=== PATIENT | female | born 1960 | race Caucasian/White ===

== ENCOUNTER 2018-03-11 08:52 | Outpatient (REF) | payer OTHER, BC, SELFPAY ==
[2018-03-11 12:23] LABS: HCT 41.1 % (36.0-46.0); HGB 13.7 g/dL (12.0-15.5); Mean Corp. HGB Concentration 33.3 g/dL (32.0-36.0); Mean Corpuscular Hemoglobin 30.9 pg (27.0-33.0); Mean Corpuscular Volume 92.6 fL (80-95); Mean Platelet Volume 11.2 fL (8.0-11.0); Platelet Count 251 x1000/uL (130-400); RBC 4.44 m/cumm (4.00-5.20); RBC Distribution Width 12.6 % (11.7-14.6); White Blood Cell Count 7.35 k/cumm (4.4-10.8)
[2018-03-11 12:46] LABS: ALT 67 U/L (12-78); AST 32 U/L (15-37); Albumin 3.9 g/dL (3.4-5.0); Alkaline Phosphatase 50 U/L (46-116); Anion Gap 9.9 mmol/L (3-11); BUN 16 mg/dL (7-18); Bilirubin, Total 0.4 mg/dL (0.2-1.0); CO2 29.1 mmol/L (21.0-32.0); CREATININE 0.91 mg/dL (0.55-1.02); Calcium 9.6 mg/dL (8.5-10.1); Chloride 101 mmol/L (98-107); Cholesterol 256 mg/dL (50-200); Glucose 99 mg/dL (70-100); HDL Cholesterol 57 mg/dL (40-60); LDL CHOLESTEROL 171 mg/dL (<100); Potassium 3.8 mmol/L (3.5-5.1); Sodium 140 mmol/L (136-145); Total Protein 7.3 g/dL (6.4-8.2); Triglyceride 136 mg/dL (30-150)
[2018-03-11 12:56] LABS: Lipase 113 U/L (73-393)
== END 2018-03-11 09:12 ==
LOC: NCHCN 08:52
PROVIDERS: PCP Internal Medicine; Visit Provider Family Medicine
DX: Z00.00 Encounter for general adult medical examination without abnormal findings (principal); C50.919 Malignant neoplasm of unspecified site of unspecified female breast; G43.909 Migraine, unspecified, not intractable, without status migrainosus; I10 Essential (primary) hypertension
CPT/HCPCS: 80053; 80061; 83690; 83721; 85027

== ENCOUNTER 2019-04-21 08:57 | Outpatient (REF) | payer OTHER, BC, SELFPAY ==
[2019-04-21 11:36] LABS: ALT 35 U/L (14-59); AST 23 U/L (15-37); Albumin 3.9 g/dL (3.4-5.0); Alkaline Phosphatase 60 U/L (46-116); Bilirubin, Direct 0.13 mg/dL (0.00-0.20); Bilirubin, Total 0.4 mg/dL (0.2-1.0); Total Protein 7.3 g/dL (6.4-8.2)
== END 2019-04-21 09:17 ==
LOC: NCHCN 08:57
PROVIDERS: PCP Internal Medicine; Visit Provider Family Medicine
DX: E78.5 Hyperlipidemia, unspecified (principal)
CPT/HCPCS: 80076

== ENCOUNTER 2019-11-22 09:15 | Outpatient (REF) | payer OTHER, BC, SELFPAY ==
[2019-11-22 20:46] LABS: HCT 39.1 % (36.0-46.0); HGB 13.1 g/dL (12.0-15.5); Mean Corp. HGB Concentration 33.5 g/dL (32.0-36.0); Mean Corpuscular Hemoglobin 30.9 pg (27.0-33.0); Mean Corpuscular Volume 92.2 fL (80-95); Mean Platelet Volume 11.6 fL (8.0-11.0); Platelet Count 259 x1000/uL (130-400); RBC 4.24 m/cumm (4.00-5.20); White Blood Cell Count 6.19 k/cumm (4.4-10.8)
[2019-11-22 20:57] LABS: ALT 22 U/L (14-59); AST 15 U/L (15-37); Albumin 3.8 g/dL (3.4-5.0); Alkaline Phosphatase 72 U/L (46-116); Anion Gap 9.2 mmol/L (3-11); BUN 16 mg/dL (7-18); Bilirubin, Total 0.4 mg/dL (0.2-1.0); CO2 25.8 mmol/L (21.0-32.0); CREATININE 0.67 mg/dL (0.55-1.02); Calcium 8.9 mg/dL (8.5-10.1); Calculated LDL 137 mg/dL (<100); Chloride 106 mmol/L (98-107); Cholesterol 213 mg/dL (<200); Glucose 94 mg/dL (74-106); HDL Cholesterol 58 mg/dL (40-60); Potassium 3.7 mmol/L (3.5-5.1); Sodium 141 mmol/L (136-145); Total Protein 6.8 g/dL (6.4-8.2); Triglyceride 94 mg/dL (<150)
[2019-11-22 21:19] LABS: Hemoglobin A1C 5.9 % (3.8-5.6)
== END 2019-11-22 09:35 ==
LOC: NCHCN 09:15
PROVIDERS: PCP Internal Medicine; Visit Provider Family Medicine
DX: Z13.1 Encounter for screening for diabetes mellitus (principal)
CPT/HCPCS: 80053; 80061; 85027; 83036

== ENCOUNTER 2019-12-08 13:47 | Outpatient (REF) | payer OTHER, BC, SELFPAY ==
--- NOTE | 2019-12-08 12:25 | PAPFT_PTH ---
PATIENT: Roxy Richardson LOC: [facility] U#:[id number] AGE/SX: 59/F ROOM: RE12/08/[address]: Oralia Barnard : 1960 BED: DIS: 12/08/2019 SPEC #: [id number] RECD: 12/09/19 12:47 STATUS: OSBALDOPayal REQ #: [id number] CAROL: 12/08/19 12:[address]: Oralia Barnard DEPT: [facility] Cytology RECD BY: Keyla Hopper ENTERED: 12/09/19 12:48 SP TYPE: PAPFT OTHR DR: Wilfred De Jesus Tissues: 1 - CX/ENDOCX FOR PAP SMEARS Procedures: PAP THIN PREP/UVM Screening HPV DNA PROBE Comments: [id number]
== END 2019-12-08 14:07 ==
LOC: NCHCN 13:47
PROVIDERS: PCP Internal Medicine; Visit Provider Family Medicine
DX: Z11.51 Encounter for screening for human papillomavirus (HPV) (principal); Z12.4 Encounter for screening for malignant neoplasm of cervix
CPT/HCPCS: 88142; 87624

== ENCOUNTER 2019-12-28 00:28 | Outpatient (CLI) | payer OTHER, BC, SELFPAY ==
--- NOTE | 2019-12-28 15:00 | DI.MAMMO_ITS ---
EXAM: MG MAMMO SCREENING 60 MIN DUR CLINICAL HISTORY: SCREENING, PERSONAL H/O BREAST CA,C50.919[place] [facility] [place]: Mammograms were interpreted according to the usual protocol including computer analysis w [facility] CAD system, tomosynthesis and C-view imaging. COMPARISON: FINDINGS: Note is made of a prior right lumpectomy. No mass or clumped microcalcification identified in either breast. Scattered nonspecific microcalcifications are noted. Current examination is compared with previous examinations including July 2018 and there has been no gross interval change in appearance in comparison with prior studies. IMPRESSION: No specific evidence of malignancy at this time. Routine screening examinations are suggested at ye starr intervals due to the history of breast carcinoma. BI-RADS Category 1 - Negative Breast Density - Category C - Heterogeneously dense
== END 2019-12-28 00:48 ==
PROVIDERS: PCP Family Medicine; Visit Provider Family Medicine
DX: Z85.3 Personal history of malignant neoplasm of breast (principal); R92.0 Mammographic microcalcification found on diagnostic imaging of breast; R92.2 Inconclusive mammogram; Z12.31 Encounter for screening mammogram for malignant neoplasm of breast
CPT/HCPCS: 77063; 77067

== ENCOUNTER 2020-06-19 15:17 | Outpatient (REF) | payer OTHER, BC, SELFPAY ==
[2020-06-20 19:39] LABS: COVID-19 RT-PCR UVMMC Result Negative (Negative)
== END 2020-06-19 15:18 | disposition home or self-care (01) ==
LOC: NCHCN 15:17
PROVIDERS: PCP Family Medicine; Visit Provider Family Medicine
DX: Z20.828 Contact with and (suspected) exposure to other viral communicable diseases (principal)
CPT/HCPCS: U0003

== ENCOUNTER 2020-08-09 22:29 | Outpatient (REF) | payer OTHER, BC, SELFPAY ==
[2020-08-11 17:44] LABS: COVID-19 RT-PCR UVMMC Result Negative (Negative)
== END 2020-08-09 22:30 | disposition home or self-care (01) ==
LOC: NCHCN 22:29
PROVIDERS: PCP Family Medicine; Visit Provider Family Medicine
DX: Z20.828 Contact with and (suspected) exposure to other viral communicable diseases (principal)
CPT/HCPCS: U0003

== ENCOUNTER 2020-10-13 01:56 | Outpatient (CLI) | payer OTHER, BC, SELFPAY ==
--- NOTE | 2020-10-13 08:27 | DI.RAD_ITS ---
Exam(s) XR KNEE RT 3V AP,LAT,OTONIEL EXAM: XR KNEE RT 3V AP,LAT,OTONIEL CLINICAL HISTORY: RT KNEE JOINT PAIN, M25.561. TECHNIQUE: 2D digital imaging was performed. COMPARISON: No exams were available for comparison FINDINGS: The bones are intact and normally mineralized. The articular surfaces are well maintained. There is a small enthesophyte at the superior patella. No suspicious lytic or sclerotic lesions are seen. N o joint effusion is present. The soft tissues are unremarkable. IMPRESSION: No acute abnormality. DATA REPOSITORY: RADIATION DOSE DELIVERED:
== END 2020-10-13 02:16 ==
PROVIDERS: PCP Family Medicine; Visit Provider Family Medicine
DX: M25.561 Pain in right knee (principal)
CPT/HCPCS: 73562

== ENCOUNTER 2020-10-30 15:49 | Outpatient (REF) | payer OTHER, BC, SELFPAY ==
[2020-10-30 21:39] LABS: Abs Immature Grans 0.03 10^3/uL (0.0-0.06); Absolute Basophil Count 0.07 10^3/uL (0.0-0.2); Absolute Eosinophil Count 0.27 10^3/uL (0.0-0.7); Absolute Lymphocyte Count 1.86 10^3/uL (1.2-3.4); Absolute Monocyte Count 1.01 10^3/uL (0.1-0.8); Absolute Neutrophil Count 6.31 10^3/uL (1.2-6.7); Basophils % 0.7; Eosinophils % 2.8; HCT 38.9 % (36.0-46.0); HGB 12.9 g/dL (11.2-15.7); Immature Grans % 0.3; Lymphocytes % 19.5; MCH 30.4 pg (27.0-33.0); MCHC 33.2 % (32.0-36.0); MCV 91.5 fL (80-95); MPV 11.8 fL (8.0-11.0); Monocytes % 10.6; Neutrophils % 66.1; Nucleated RBC 0 %; Platelet Count 238 10^3/uL (130-400); RBC 4.25 10^6/uL (3.93-5.22); RDW 12.6 % (11.7-14.6); RDW-SD 42.4 fL; WBC 9.55 10^3/uL (4.4-10.8)
[2020-10-30 21:41] LABS: ESR 37 mm/hr (0-30)
[2020-10-30 22:07] LABS: ALT 20 U/L (14-59); AST 14 U/L (15-37); Alkaline Phosphatase 83 U/L (46-116); Anion Gap 11.8 mmol/L (3-11); BUN 21 mg/dL (7-18); Bilirubin, Total 0.4 mg/dL (0.2-1.0); C-Reactive Protein 5.02 mg/dL (0.0-0.3); CO2 26.2 mmol/L (21.0-32.0); Calcium 9.3 mg/dL (8.5-10.1); Chloride 106 mmol/L (98-107); Estimated GFR 56.56 (mL/min/1.73m2); Glucose 114 mg/dL (74-106); Potassium 3.4 mmol/L (3.5-5.1); Sodium 144 mmol/L (136-145); Total Protein 7.2 g/dL (6.4-8.2)
[2020-11-01 10:35] LABS: Lyme Ab w Rflx to Lyme Confirm Negative (Negative)
[2020-11-02 13:27] LABS: Anaplasma phagocytophilum Negative (Negative); B. miyamotoi PCR Negative (Negative); Babesia divergens/MO-1 Negative (Negative); Babesia duncani Negative (Negative); Babesia microti Negative (Negative); Ehrlichia chaffeensis Negative (Negative); Ehrlichia ewingii/canis Negative (Negative); Ehrlichia muris eauclairensis Negative (Negative)
== END 2020-10-30 15:50 | disposition home or self-care (01) ==
LOC: LBN 15:49
PROVIDERS: PCP Family Medicine; Visit Provider Nurse Practitioner Family
DX: M25.59 Pain in other specified joint (principal)
CPT/HCPCS: 80053; 85652; 87798; 85025; 86140; 86618

== ENCOUNTER 2020-11-10 12:30 | Outpatient (REF) | payer OTHER, BC, SELFPAY ==
[2020-11-11 22:39] LABS: Rheumatoid Factor <8.6 IU/mL (<12.0)
[2020-11-13 14:59] LABS: ANCA Interpretation Negative (Negative)
[2020-11-13 15:32] LABS: ANA Interpretation Positive (Negative); ANA Titer Pattern 1:80 Homogeneous
== END 2020-11-10 12:31 | disposition home or self-care (01) ==
LOC: NCHCN 12:30
PROVIDERS: PCP Family Medicine; Visit Provider Family Medicine
DX: M25.50 Pain in unspecified joint (principal)
CPT/HCPCS: 86255; 86038; 86431

== ENCOUNTER 2021-01-30 02:25 | Outpatient (CLI) | payer OTHER, BC, SELFPAY ==
--- NOTE | 2021-01-30 | DI.MAMMO_ITS ---
Exam(s) MAMMO SCREENING EXAM: MAMMO SCREENING CLINICAL HISTORY: SCREENING, Z12.39 TECHNIQUE: Bilateral full field digital CC and MLO mammographic images were obtained with 3D tomosyn thesis and utilizing computer aided detection (CAD). COMPARISON: Available for comparison. FINDINGS: Masses/Architectural Distortion: None seen. Status post right lumpectomy. Microcalcifications: No suspicious pleomorphic-type are seen. Skin Thickening/Nipple Retraction: None. IMPRESSION: 1. No significant interval change with no specific features of malignancy noted. 2. Unless there is more urgent need, screening mammography is recommended, as per [employer] guidelines. BI-RADS Category 1 - Negative Breast Density - Category C - Heterogeneously dense Breast density category C or D implies that the patient has dense breast tissue. Dense breast tissue is very common and is not abnormal but dense breast tissue can make it harder to find cancer on a ma mmogram. Also, dense breast tissue may increase their breast cancer risk. This information about the result of the mammogram report was provided to the patient to raise their awareness. Use this report when you speak with the patient about their risks for breast cancer, which includes their family hist ory. At that time, you may recommend for more screening tests (Ultrasound or MRI) as they might be us eful based on their risk. A negative radiographic report should not delay biopsy if a dominant or clinically suspicious mass is present. Up to ten percent of cancers are not identified on mammography. A negative report may reinforce clinical impression. Adenosis and dense breasts may obscure an underlying neoplasm. False positive reports average 6 to 10%. Patient will receive a letter notifying them of these results.
== END 2021-01-30 02:45 ==
PROVIDERS: PCP Family Medicine; Visit Provider Family Medicine
DX: Z12.31 Encounter for screening mammogram for malignant neoplasm of breast (principal)
CPT/HCPCS: 77063; 77067

== ENCOUNTER 2022-04-21 09:01 | Emergency (ER) | payer OTHER, BC, SELFPAY ==
[2022-04-21 09:11] VITALS: BP 181/93; PULSE 83; RESP 18; TEMP 36.8; O2SAT 100
--- NOTE | 2022-04-21 10:00 | DI.RAD_ITS ---
Exam(s) XR PORTABLE CHEST AP EXAM: XR PORTABLE CHEST AP CLINICAL HISTORY: cough, r/o pneumonia TECHNIQUE: 2D digital imaging was performed. COMPARISON: No exams were available for comparison FINDINGS: LUNGS: Clear. No pleural abnormality seen. HEART: Normal size. AORTA: Normal diameter. BONES: Unremarkable for age. Soft tissues: Unremarkable. IMPRESSION: No acute findings. DATA REPOSITORY: RADIATION DOSE DELIVERED:
[2022-04-21 10:28] LABS: COVID-19 PCR Negative (Negative); Influenza A PCR Negative (Negative); Influenza B PCR Negative (Negative)
[2022-04-21 10:29] LABS: RSV PCR Positive (Negative)
--- NOTE | 2022-04-21 10:29 | DI.VRAD_ITS ---
PROCEDURE INFORMATION: Exam: XR Chest Exam date and time: 04/21/2022 9:50 AM Age: 61 years old Clinical indication: Other: Cough, R/O pneumonia TECHNIQUE: Imaging protocol: Radiologic exam of the chest. Views: 1 view. COMPARISON: CT ABD/PELVIS WO W CONTRAST 05/14/2017 8:04 AM FINDINGS: Lungs: Unremarkable. No consolidation. Pleural spaces: Unremarkable. No pleural effusion. No pneumothorax. Heart/Mediastinum: Unremarkable. No cardiomegaly. Bones/joints: Unremarkable. IMPRESSION: No acute findings. Dictated and Authenticated by: César Koch MD. Ordering:PRICILA Yoo MD
--- NOTE | 2022-04-21 10:40 | ED.GENADUL_ITS ---
Discharge Plan Disposition Patient Disposition: Home Condition: Good Discharge Details Clinical Impression: RSV bronchitis Primary Care Provider: Oralia Barnard ED Provider: Fredo Irving Home Meds and New Rx's Prescriptions: No Action lovastatin 20 mg tablet 20 mg PO QPM losartan 100 mg tablet 100 mg PO DAILY dhzkrisi-bpntppz-thmy-lutein Tablet PO DAILY Discharge Instructions Instructions: Acute Bronchitis (ED) Additional Instructions: At this time your test is positive for respiratory syncytial virus. Your COVID and flu are negative. The x-ray shows no evidence of pneumonia. Please continue to monitor your symptoms closely. If you notice any worsening of your symptoms, or any new symptoms such as vomiting, diarrhea, fever, chills, shortness of breath, chest pain, numbness, weakness, or fainting , please return immediately to the emergency department for reevaluation. Please follow up with your primary care provider as soon as possible for reassessment and reevaluation. As always, it was a pleasure participating in your medical care today. Referrals: Oralia Barnard [Primary Care Provider] - Discharge Data Discharge Date/Time-TO BE ENTERED AT DEPARTURE: 04/21/22 10:49 Medical Decision Making This is a 61-year-old female with no significant past medical history who presents today for evaluation of cough. Patient states that for the last 6 days she has had a mild cough, headache, congestion sore throat and ear pain. She tested herself for COVID that was negative. She denies any current fever. She denies any vomiting or diarrhea. She does not smoke. She has no other complaints at this time. Physical exam demonstrates a well-appearing female. Lung sounds are clear. No wheezes rales or rhonchi. Chest x-ray was ordered and shows no evidence of pneumonia. Fluid test is positive for RSV. Recommend continued supportive therapy at home. Discussed red flags for which to return. I have extensively reviewed the treatment plan and discharge instructions with the patient. I have addressed all patient concerns at this time. The patient was made aware of what symptoms to monitor for that would warrant a return to the emergency department. Discussed the plan with the patient, they demonstrate verbal understanding and agreement with our assessment and plan at this time. The documentation in this chart was dictated using [employer] dictation software. Please excuse any dictation errors. FINDINGS: Lungs: Unremarkable. No consolidation. Pleural spaces: Unremarkable. No pleural effusion. No pneumothorax. Heart/Mediastinum: Unremarkable. No cardiomegaly. Bones/joints: Unremarkable. IMPRESSION: No acute findings. Thank you for allowing us to participate in the care of your patient. Dictated and Authenticated by: César Koch MD 04/21/2022 10:29 AM Eastern Time ([place] & Mar) HPI General Date/Time Provider Initiated Documentation: 04/21/22 09:41 . HPI Narrative: This is a 61-year-old female with no significant past medical history who presents today for evaluation of cough. Patient states that for the last 6 days she has had a mild cough, headache, congestion sore throat and ear pain. She tested herself for COVID that was negative. She denies any current fever. She denies any vomiting or diarrhea. She does not smoke. She has no other complaints at this time. Related Data Home Medications Medication Instructions Recorded Confirmed losartan 100 mg tablet 100 mg PO DAILY 09/14/21 04/21/22 lovastatin 20 mg tablet 20 mg PO QPM 09/14/21 04/21/22 jucttttt-fjzzoeq-hpcp-lutein tablet tab PO DAILY 09/14/21 Allergies Allergy/AdvReac Type Severity Reaction Status Date / Time lisinopril Allergy Severe Verified 04/21/22 09:16 General Stated Complaint: RespSymp LORENE: 4 Review of Systems All systems reviewed & are unremarkable except as noted in HPI and below PFSH All Active Problems (Updated 04/21/22 @ 10:43 by Fredo Irving DO) RSV bronchitis (Acute) Screening for colon cancer (Acute) Medical History (Updated 04/21/22 @ 10:43 by Fredo Irving DO) Arthralgia Breast cancer Hematuria, microscopic Hyperlipidemia Hypertension Migraine headache Neck pain Surgical History (Updated 09/14/21 @ 14:50 by Yudith Cortez RN) History of colonoscopy (~03/2011) Social History Smoking/Tobacco Use Status: Never Smoking risk assessment performed?: Yes Alcohol Intake: current Alcohol Intake frequency: a few times a month Alcohol type: wine Drug use: Never Substance use type: does not use Do you feel safe at home: Yes Do you feel safe in your relationship?: Yes Exam Narrative Exam Narrative: 1.Const: Well-nourished, Well-developed, appearing stated age 2.Eyes: PERRL, no conjunctival injection, and symmetrical lids. 3.ENT: Atraumatic external nose and ears. Moist MM. Neck: Symmetric, trachea midline, No thyromegaly. 4.CVS: +S1/S2, No murmurs or gallops. Peripheral pulses 2+ and equal in all extremities. Brisk capillary refill in all extremities. 5.RESP: Unlabored respiratory effort. Clear to auscultation bilaterally. No wheezes rales or rhonchi 6.GI: Soft, Nontender/Nondistended, No hepatosplenomegaly. No guarding or rebound. 7.MSK: Normocephalic/Atraumatic, Extremities w/o deformity or ttp No cyanosis or clubbing, Normal movement of all extremities 8.Skin: Warm, Dry. No rashes or lesions. 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 Sensation grossly intact, no focal neurologic deficits. 10.Psych: (AAO) x3. Appropriate mood and affect Course Vital Signs Vital signs: Vital Signs Temperature 36.8 C 04/21/22 09:11 Pulse 83 04/21/22 09:11 Respiratory Rate 18 04/21/22 09:11 Blood Pressure 181/93 H 04/21/22 09:11 Pulse Oximetry 100 04/21/22 09:11 Temperature 36.8 C 04/21/22 09:11 Temperature Source Oral 04/21/22 09:11 Pulse 83 04/21/22 09:11 Respiratory Rate 18 04/21/22 09:11 Respiratory Effort Non-Labored 04/21/22 09:19 Respiratory Depth Normal 04/21/22 09:19 Blood Pressure 181/93 H 04/21/22 09:11 Blood Pressure Position Sitting 04/21/22 09:11 Pulse Oximetry 100 04/21/22 09:11 Oxygen Delivery Method Room Air 04/21/22 09:11 Oxygen Flow Rate 0 04/21/22 09:11 Pain Level 6 04/21/22 09:11 Lab/Test Results Lab/Test Results: Laboratory Tests Range/Units 04/21/22 09:45 COVID-19 Source Not Applicable SARS-CoV-2 (PCR) (Negative) Negative Influenza Type A (PCR) (Negative) Negative Influenza Type B (PCR) (Negative) Negative RSV (PCR) (Negative) Positive A* PAWSS Have you Been Recently Intoxicated or Drunk Within the Last 30 days?: No Have you Ever Experienced Previous Episodes of Alcohol Withdrawal?: No Have you ever Experienced Withdrawal Seizures?: No Have you ever Experienced Delirium Tremens(DT)s?: No Have you ever undergone Alcohol Rehabilitation Treatment (i.e, inpt ot outpatient treatment programs)?: No Have you ever Experienced Blackouts?: No Have you ever Combined Alcohol with other Downers within the last 90 days?: No Have you ever Combined Alcohol with any other Substance of Abuse during the last 90 days?: No Positive Blood Alcohol level on Presentation? [PCS.BAL]: No Evidence of Increased Autonomic Activity (i.e. HR>120, tremor, sweating, agitation, nausea)?: No Result: 0
== END 2022-04-21 10:49 | disposition home or self-care (01) ==
PROVIDERS: Emergency Provider Student in an Organized Health Care Education/Training Program; PCP Family Medicine
DX: J20.5 Acute bronchitis due to respiratory syncytial virus (principal); I10 Essential (primary) hypertension; Z20.822 Contact with and (suspected) exposure to COVID-19
CPT/HCPCS: 87637; 99283; 71045; 99282

== ENCOUNTER 2022-07-08 06:57 | Day surgery (SDC) | payer OTHER, BC, SELFPAY ==
--- NOTE | 2022-07-07 20:53 | W.PM.DSUDISC ---
Date of service: 07/08/22 Time of Service: 10:34 Discharge Plan Disposition Patient Disposition: Home Condition: Good Discharge Details Reason For Visit: Colonoscopy Attending Provider: Kobe Vega Primary Care Provider: Oralia Barnard Home Meds and New Rx's Prescriptions: Continued lovastatin 20 mg tablet 20 mg PO QPM losartan 100 mg tablet 100 mg PO DAILY spdcskgl-meqnzgg-ydua-lutein Tablet 1 tab PO DAILY Discontinued bisacodyl [Dulcolax (bisacodyl)] 5 mg tablet,delayed release (DR/EC) 5 mg PO ONCE Qty: 4 0RF Rx Instructions: Take according to provider's instructions for colonoscopy prep. polyethylene glycol 3350 17 gram/dose powder 17 g PO ONCE Qty: 238 0RF Rx Instructions: To be taken as directed by prescriber's office for colonoscopy prep. No Action naproxen sodium [Aleve] 220 mg Capsule 220 mg PO BID PRN Discharge Instructions Instructions: Colorectal Polyps (GEN), Diverticulosis (GEN), Diverticulosis Diet (GEN) Additional Instructions: Arin, we were able to complete your colonoscopy today without any difficulty. The quality of your prep was excellent. I did see 1 polyp in the cecum. I removed this completely. Once I have the pathology report, I will let you know what the results are. Incidentally, you also have some diverticulosis. I will attach some information here regarding diverticular disease, and general management. 1. If tolerated, consume a soft, low fiber diet for 1-2 days. 2. Do not drive, drink alcohol, operate machinery, make critical decisions, or do activities that require coordination or balance for 24 hours. 3. Because air was put into your colon during the procedure, expelling air from your rectum (passing gas or farting) is normal. 4. You may not have a bowel movement for 1-3 days because of the colonoscopy prep. This is normal. 5. Go directly to the emergency room if you notice any of the following: Develop chills (warm to touch), or if you have a thermometer and your temperature is above 101 Difficulty breathing or difficultly swallowing Persistent vomiting Severe abdominal pain, other than gas cramps Severe chest pain Black, tarry stools Any bleeding ? exceeding one tablespoon 6. Call your physician if the site where your intravenous was started becomes red, swollen, painful, and warm to touch. 7. Your physician has reviewed your pre-procedure medications. Please continue to take those medications as previously ordered. You will be given specific information/education regarding any changes to your medications before leaving. Activity:: Activity as Tolerated Diet:: As Tolerated Discharge Orders Discharge Orders: Discharge Order (Routine); Ordered 07/07/22 Ordered By: Kobe Vega DS: Diagnosis Discharge Diagnosis (1) Screening for colon cancer: Status: Acute Asessment and Plan: Follow-up on polypectomy results
--- NOTE | 2022-07-07 20:54 | W.COLOREPORT ---
Date of service: 07/08/22 Time of Service: 10:36 Colonoscopy Report Date of procedure: 07/08/22 Pre-op diagnosis general: Screening colonoscopy Post-op diagnosis procedure note: other (Cecal polyp, diverticulosis) Procedure: Colonoscopy Surgeon: Kobe Vega Anesthesia Type: General:No Airway Estimated blood loss (mL): 5 Pathology: other (Cecal polyp) Complications: None Disposition: same day Indications: Roxy is a 61 year old woman who is here for a screening colonoscopy Prep: Miralax/Dulcolax Procedure Start Time: 10:09 Procedure End Time: 10:26 Retraction Time: 12 Findings: Single cecal polyp. Sigmoid diverticulosis Procedure Description: After the induction of monitored anesthetic care, and with the patient in left lateral decubitus position, I began by performing an external anorectal exam.? Perineum and skin were normal, as was the anal verge.? There was no evidence of external hemorrhoids.? Next, I performed a digital rectal exam.? I did not appreciate any abnormal findings.? Next, I advanced a colonoscope into the rectal vault.? I performed retroflexion.? This was a normal.? Using insufflation, I then advanced the colonoscope beyond the rectal folds and into the sigmoid colon before advancing towards the cecum.? There was sigmoid diverticulosis. the quality of the prep was excellent.? The scope was noted to be in the cecum by identification of the ileocecal valve and appendiceal orifice.? There was a single cecal polyp. It was 0.25 cm in size and sessile. I removed it with cold forcep polypectomy. There was minimal bleeding. I then began withdrawing the colonoscope using repeated irrigation as necessary for full evaluation of the colonic mucosa. ?Once the scope was withdrawn to the level of the rectum, great care was taken to examine portions of the rectal folds.? Finally, the scope was withdrawn and the patient was brought to the same-day surgery recovery unit as the anesthetic wore off. ?The findings and instructions were shared with the patient prior to discharge.
[2022-07-08 07:11] VITALS: BP 128/76; PULSE 72; RESP 18; TEMP 36.1; O2SAT 99
[2022-07-08] MEDS: Lactated Ringers 1,000 ML 80 ML IV (07:15)
--- NOTE | 2022-07-08 08:27 | W.ANESPRE ---
General Info Date of Service Date Performed: 07/08/22 Height: 5 ft 2 in Weight: 67.6 kg Body Mass Index (BMI): 27.2 Surgical Procedure: Operation Date: 07/08/22 08:20 Proposed Procedure Side Surgeon p Colonoscopy Kobe Vega MD Meds Allergies and Home Medications Allergies Allergy/AdvReac Type Severity Reaction Status Date / Time lisinopril Allergy Severe Verified 07/08/22 07:14 Home Medication Medication Instructions Recorded losartan 100 mg tablet 100 mg PO DAILY 09/14/21 lovastatin 20 mg tablet 20 mg PO QPM 09/14/21 ghxopfzw-vsppibw-svmk-lutein tablet 1 tab PO DAILY 09/14/21 naproxen sodium 220 mg capsule 220 mg PO BID PRN 07/08/22 (Aleve) Current Visit Medications: Current Medications Generic Name Dose Route Start Last Admin Trade Name Freq PRN Reason Stop Dose Admin Hyoscyamine Sulfate 0.125 mg 07/07/22 20:56 Hyoscyamine 0.125 Mg Sl/Oral/Chew SL DIRECTED PRN Ringer's Solution 1,000 mls @ 80 mls/hr 07/08/22 06:00 07/08/22 07:15 IV 08/04/22 23:59 80 mls/hr INFUSION DARINEL Administration IV Miscellaneous Supplies 1 each 07/08/22 06:00 Iv Access IV 08/04/22 23:59 DIRECTED DARINEL Ondansetron HCl 4 mg 07/07/22 20:56 Ondansetron 4 Mg/2 Ml Vial IVP Q4H PRN PRN Nausea / Vomiting Sodium Chloride 0 ml 07/08/22 06:00 Normal Saline Flush 10 Ml Syr IV 08/04/22 23:59 PRN PRN Sodium Chloride 0 ml 07/08/22 06:00 Normal Saline 10 Ml Vial IJ 08/04/22 23:59 DIRECTED PRN Sterile Water 0 ml 07/08/22 06:00 Water,Injection,Sterile 10 Ml Vial IJ 08/04/22 23:59 DIRECTED PRN PFSH Active Problems Active Problems: Problem Status Onset Code Screening for colon cancer Z12.11 Medical History Medical History Arthralgia Breast cancer 9th year remission Hematuria, microscopic Hyperlipidemia Hypertension Migraine headache Neck pain Surgical History Surgical History History of ankle surgery metal plate in ankle History of colonoscopy (~03/2011) Hx of elbow surgery Tobacco Smoking/Tobacco Use Status: Never Alcohol Alcohol Intake: current Alcohol intake frequency: a few times a month Alcohol type: wine Substance Use Substance use: Never Substance use type: does not use Details: alcohol: t-4, couple glasses of wine Vital Signs and Lab Results Vital Signs Most Recent Vital Signs in EMR: Most Recent Vital Signs Temp Pulse Resp BP Pulse Ox 36.1 C L 72 18 128/76 99 07/08/22 07:11 07/08/22 07:11 07/08/22 07:11 07/08/22 07:11 07/08/22 07:11 Lab Results Blood Type / Crossmatch: No Data to Display Complete Blood Count: No Data to Display Complete Metabolic Panel: No Data to Display Liver Function Panel: No Data to Display Coagulation Panel: No Data to Display Cardiac Panel: No Data to Display Arterial Blood Gas: No Data to Display Venous Blood Gas: No Data to Display Pancreas Panel: No Data to Display Thyroid Panel: No Data to Display Infectious Disease: No Data to Display Blood Cultures: No Data to Display Toxicology Panel: No Data to Display Anesthesia Assessment and Plan Anesthesia History Personal History: No History of Anesthesia Complications Family History: No Family History of Anesthesia Complications Exercise Tolerance Exercise Tolerance: Metabolic Equivalents>4 Pertinent Negatives Pertinent Negatives: No Symptoms of GERD, No Major Cardiovascular Symptoms or Complaints and No Major Pulmonary Symptoms or Complaints Cardiac & Pulmonary Exam Cardiac Exam: Normal S1/S2 Heart Sounds Pulmonary Exam: Clear Bilateral Breath Sounds Implantable Cardiac Device Does patient have a Pacemaker or an ICD?: No Airway Exam Known Difficult Airway: No Mallampati Class: 2 Mouth Opening: Normal (> 3cm) Thyromental Distance: Greater than 3 cm Neck Range of Motion: Full ROM Neck Circumference: Normal Teeth Condition: Normal Dentition ASA Classification ASA Score: ASA 2 Emergency Case?: No NPO Status NPO Status: NPO Clears >2 hours, Solids >8 hours Anesthesia Plan Resuscitation Status: Full Code Anesthesia Technique: General Anesthesia Airway Planned: Natural Airway Monitors Used: Standard Monitors
[2022-07-08 09:48] VITALS: BMI 27.2
--- NOTE | 2022-07-08 10:19 | BOWEL_PTH ---
PATIENT: Roxy Richardson LOC: [facility] U#:[id number] AGE/SX: 61/F ROOM: RE07/08/[address]: Kobe Vega MD : 1960 BED: DIS: 07/08/2022 SPEC #: [id number] RECD: 07/08/22 13:01 STATUS: MENDEZ REQ #: [id number] CAROL: 07/08/22 10:[address]: Kobe Vega DEPT: Surgical Specimen RECD BY: Keyla Hopper ENTERED: 07/08/22 13:01 SP TYPE: Bowel OTHR DR: Oralia Barnard Tissues: 1 - BIOPSY BOWEL Procedures: GROSS AND MICRO LEVEL 4 Comments: [id number]
[2022-07-08 10:31] VITALS: BP 122/69; PULSE 65; RESP 18; TEMP 36.3; O2SAT 99
--- NOTE | 2022-07-08 10:42 | W.ANESPOSTOP ---
Postoperative Evaluation Date, Time and Location Date Performed: 07/08/22 Time Performed: 10:37 Patient Location: Day Surgery Unit Vital Signs Most Recent Imported Vital Signs: Most Recent Vital Signs Temp Pulse Resp BP Pulse Ox 36.3 C L 65 18 122/69 99 07/08/22 10:31 07/08/22 10:31 07/08/22 10:31 07/08/22 10:31 07/08/22 10:31 Pain Score Most Recent Pain Score: Most Recent Pain Score Pain Level 0 07/08/22 10:31 Assessment Mental Status: Awake (Alert & Oriented to Patient Baseline) Airway and Respiratory Function: Patent airway with normal (patient baseline) respiratory exam Cardiovascular Function: Hemodynamically Stable Hydration Status: Adequately Hydrated Nausea & Vomiting: No Nausea or Vomiting Pain: Pt. Denies Any Pain Peripheral Nerve Block: Patient did not receive a nerve block
[2022-07-08 11:01] VITALS: BP 144/82; PULSE 76; RESP 18; TEMP 36.3; O2SAT 100
== END 2022-07-08 11:17 | disposition home or self-care (01) ==
PROVIDERS: PCP Family Medicine; Visit Provider Surgery
PROC: 0DJD8ZZ Inspection of Lower Intestinal Tract, Via Natural or Artificial Opening Endoscopic (ICD-10-PCS; CPT 45378; principal; 2022-07-08 08:15)
DX: Z12.11 Encounter for screening for malignant neoplasm of colon (principal); K63.5 Polyp of colon; K57.30 Diverticulosis of large intestine without perforation or abscess without bleeding; Z85.3 Personal history of malignant neoplasm of breast
CPT/HCPCS: 45380; 88305

== ENCOUNTER 2022-07-15 11:47 | Outpatient (REF) | payer OTHER, BC, SELFPAY ==
[2022-07-15 16:10] LABS: ALT 30 U/L (14-59); AST 22 U/L (15-37); Albumin 4.5 g/dL (3.4-5.0); Alkaline Phosphatase 64 U/L (46-116); BUN 16 mg/dL (7-18); Bilirubin, Total 0.6 mg/dL (0.2-1.0); CREATININE 0.7 mg/dL (0.55-1.02); Calcium 9.6 mg/dL (8.5-10.1); Calculated LDL 144 mg/dL (<100); Chloride 104 mmol/L (98-107); Cholesterol 238 mg/dL (<200); Estimated GFR 98.34 (mL/min/1.73m2); Glucose 108 mg/dL (74-106); HDL Cholesterol 84 mg/dL (40-60); Potassium 4.4 mmol/L (3.5-5.1); Sodium 142 mmol/L (136-145); Total Protein 7.8 g/dL (6.4-8.2); Triglyceride 51 mg/dL (<150)
[2022-07-15 16:26] LABS: Vitamin D 25 Total 13.6 ng/mL (30-100)
== END 2022-07-15 11:48 | disposition home or self-care (01) ==
LOC: NCHCN 11:47
PROVIDERS: PCP Family Medicine; Visit Provider Family Medicine
DX: Z00.00 Encounter for general adult medical examination without abnormal findings (principal); E78.5 Hyperlipidemia, unspecified; I10 Essential (primary) hypertension; E55.9 Vitamin D deficiency, unspecified; R79.89 Other specified abnormal findings of blood chemistry
CPT/HCPCS: 80053; 80061; 82306

== ENCOUNTER → 2023-01-31 01:45 | Outpatient (CLI) | payer OTHER, BC, SELFPAY ==
--- NOTE | 2023-01-31 09:15 | DI.MAMMO_ITS ---
Exam(s) MG MAMMO SCREENING 60 MIN DUR EXAM: MG MAMMO SCREENING 60 MIN DUR CLINICAL HISTORY: SCREENING, Z12.31 TECHNIQUE: Bilateral full field digital CC and MLO mammographic images were obtained with 3D tomosyn thesis and utilizing computer aided detection (CAD). COMPARISON: Available for comparison. FINDINGS: Masses/Architectural Distortion: There again seen postsurgical changes of a right lumpectomy. No felicia picious masses or new areas of architectural distortion are seen. Microcalcifications: No suspicious pleomorphic-type are seen. Stable calcifications are seen in both breasts. Skin Thickening/Nipple Retraction: None. IMPRESSION: 1. No significant interval change with no specific features of malignancy noted. 2. Unless there is more urgent need, screening mammography is recommended, as per [employer] guidelines. 3. Findings were discussed with the patient on the date of the examination. BI-RADS Category 2 - Benign Findings Breast Density - Category C - Heterogeneously dense Breast density category C or D implies that the patient has dense breast tissue. Dense breast tissue is very common and is not abnormal but dense breast tissue can make it harder to find cancer on a ma mmogram. Also, dense breast tissue may increase their breast cancer risk. This information about the result of the mammogram report was provided to the patient to raise their awareness. Use this report when you speak with the patient about their risks for breast cancer, which includes their family hist ory. At that time, you may recommend for more screening tests (Ultrasound or MRI) as they might be us eful based on their risk. A negative radiographic report should not delay biopsy if a dominant or clinically suspicious mass is present. Up to ten percent of cancers are not identified on mammography. A negative report may reinforce clinical impression. Adenosis and dense breasts may obscure an underlying neoplasm. False positive reports average 6 to 10%. Patient will receive a letter notifying them of these results.
== END ==
PROVIDERS: PCP Family Medicine; Visit Provider Family Medicine
DX: Z12.31 Encounter for screening mammogram for malignant neoplasm of breast (principal)
CPT/HCPCS: 77063; 77067

== ENCOUNTER → 2023-04-07 13:27 | Outpatient (CLI) | payer OTHER, BC, SELFPAY ==
--- NOTE | 2023-04-07 | DI.RAD_ITS ---
Exam(s) XR ANKLE RT COMPLETE EXAM: XR ANKLE RT COMPLETE CLINICAL HISTORY: PAIN RT ANKLE AND JOINTS RT FOOT M25.571. TECHNIQUE: 2D digital imaging was performed. COMPARISON: CR LEFT ANKLE COMPLETE from 05/11/2011 CR LEFT ANKLE 2 VIEW from 05/21/2011 CR LEFT ANKLE COMPLETE from 07/05/2011 CR LEFT ANKLE COMPLETE from 08/02/2011 FINDINGS: There is mild soft tissue swelling over the medial malleolus but no malleolar fractures identified. No widening of the ankle mortise. Talar dome unremarkable. On the dorsal aspect of the foot there is a small accessory ossicle dorsal to the talonavicular joint . However, there is also just distal to this a 3 x 2 millimeter osteophytic density just dorsal to t he navicular which may represent an avulsion injury. There is an inferior calcaneal spur measuring 7 mm. There is an enthesophyte on the posterior calcan eus insertion site of the Achilles tendon. On the lateral view there is a subcutaneous triangular finding which measures 2 mm and is probably a foreign body. IMPRESSION: 1. 3 mm osteophytic density dorsal to the navicular bone which may be an avulsion fragment. Correlat ion with site of tenderness is recommended. 2. There appears to be a 2 mm radiopaque foreign body in the subcutaneous tissues on the undersurfac e of the foot, as best seen on the lateral view. DATA REPOSITORY: RADIATION DOSE DELIVERED:
== END ==
PROVIDERS: PCP Family Medicine; Visit Provider Nurse Practitioner Family
DX: M25.571 Pain in right ankle and joints of right foot (principal)
CPT/HCPCS: 73610

== ENCOUNTER 2023-07-30 09:04 | Outpatient (REF) | payer OTHER, BC, SELFPAY ==
[2023-07-30 14:49] LABS: ALT 28 U/L (14-59); AST 18 U/L (15-37); Albumin 4.3 g/dL (3.4-5.0); Alkaline Phosphatase 64 U/L (46-116); Anion Gap 9.8 mmol/L (3-11); BUN 22 mg/dL (7-18); Bilirubin, Total 0.4 mg/dL (0.2-1.0); CO2 28.2 mmol/L (21.0-32.0); CREATININE 0.7 mg/dL (0.55-1.02); Calcium 9.3 mg/dL (8.5-10.1); Calculated LDL 145 mg/dL (<100); Chloride 103 mmol/L (98-107); Cholesterol 241 mg/dL (<200); Estimated GFR 97.72 (mL/min/1.73m2); Glucose 103 mg/dL (74-106); HDL Cholesterol 87 mg/dL (40-60); Potassium 3.9 mmol/L (3.5-5.1); Sodium 141 mmol/L (136-145); Total Protein 7.5 g/dL (6.4-8.2); Triglyceride 47 mg/dL (<150)
[2023-07-30 15:10] LABS: Vitamin D 25 Total 28.6 ng/mL (30-100)
== END 2023-07-30 09:05 | disposition home or self-care (01) ==
LOC: NCHCN 09:04
PROVIDERS: PCP Family Medicine; Visit Provider Family Medicine
DX: E78.5 Hyperlipidemia, unspecified (principal); I10 Essential (primary) hypertension; Z00.00 Encounter for general adult medical examination without abnormal findings
CPT/HCPCS: 80053; 80061; 82306; 83036

== ENCOUNTER 2023-09-03 08:13 | Outpatient (REF) | payer OTHER, BC, SELFPAY ==
--- NOTE | 2023-09-03 07:45 | SKI_PTH ---
PATIENT: Roxy Richardson LOC: [facility] U#:[id number] AGE/SX: 62/F ROOM: RE09/03/[address]: Jama Ordaz MD : 1960 BED: DIS: 09/03/2023 SPEC #: [id number] RECD: 09/03/23 16:46 STATUS: MENDEZ RERomeo #: [id number] CAROL: 09/03/23 07:[address]: Jama Ordaz DEPT: Surgical Specimen RECD BY: Keyla Hopper ENTERED: 09/03/23 16:47 SP TYPE: IDRIS STEVE DR: Oralia Barnard Tissues: 1 - SKIN BIOPSY(SHAVE/PUNCH) 2 - SKIN BIOPSY(SHAVE/PUNCH) Procedures: SKIN LEVEL 4 Comments: [id number]
== END 2023-09-03 08:14 | disposition home or self-care (01) ==
LOC: LBN 08:13
PROVIDERS: PCP Family Medicine; Visit Provider Otolaryngology
DX: B07.9 Viral wart, unspecified
CPT/HCPCS: 88305

== ENCOUNTER 2024-03-23 08:39 | Outpatient (REF) | payer OTHER, BC, SELFPAY ==
[2024-03-23 14:53] LABS: Abs Immature Grans 0.01 10^3/uL (0.0-0.06); Absolute Basophil Count 0.04 10^3/uL (0.0-0.2); Absolute Eosinophil Count 0.12 10^3/uL (0.0-0.7); Absolute Lymphocyte Count 2.54 10^3/uL (1.2-3.4); Absolute Monocyte Count 0.44 10^3/uL (0.1-0.8); Absolute Neutrophil Count 2.89 10^3/uL (1.2-6.7); Basophils % 0.7 %; HCT 41.3 % (36.0-46.0); HGB 13.7 g/dL (11.2-15.7); Immature Grans % 0.2 %; Lymphocytes % 42.1 %; MCH 31.3 pg (27.0-33.0); MCHC 33.2 % (32.0-36.0); MCV 94 fL (80-95); MPV 10.8 fL (8.0-11.0); Monocytes % 7.3 %; Neutrophils % 47.7 %; Platelet Count 264 10^3/uL (130-400); RBC 4.38 10^6/uL (3.93-5.22); RDW 12.6 % (11.7-14.6); RDW-SD 44.1 fL; WBC 6.04 10^3/uL (4.4-10.8)
[2024-03-23 14:55] LABS: Bilirubin Negative (Negative); Blood Small (Negative); Clarity Clear (Clear); Glucose Negative (Negative); Ketones Negative (Negative); Leukocyte Esterase Negative (Negative); Nitrite Negative (Negative); Specific Gravity 1.015 (1.005-1.025); Urobilinogen 0.2 mg/dL (Up to 0.2)
[2024-03-23 15:07] LABS: Iron 134 ug/dL (50-170); Total Iron Binding Capacity 376 ug/dL (250-450); Transferrin Sat 36 % (15-50)
[2024-03-23 15:54] LABS: ALT 37 U/L (14-59); AST 27 U/L (15-37); Albumin 4.2 g/dL (3.4-5.0); Alkaline Phosphatase 63 U/L (46-116); Anion Gap 11.5 mmol/L (3-11); BUN 15 mg/dL (7-18); Bilirubin, Total 0.63 mg/dL (0.2-1.0); CO2 28.5 mmol/L (21.0-32.0); CREATININE 0.6 mg/dL (0.55-1.02); Chloride 100 mmol/L (98-107); Glucose 87 mg/dL (74-106); Lipase 30 U/L (16-77); Potassium 3.9 mmol/L (3.5-5.1); Sodium 140 mmol/L (136-145); Total Protein 7.6 g/dL (6.4-8.2)
[2024-03-23 16:26] LABS: Ferritin 84 ng/mL (8-252)
[2024-03-23 16:45] LABS: Amylase 28 U/L (25-115)
[2024-03-24 12:05] LABS: IgA 157 mg/dL (85-499); Interpretation (See Note); Tissue Transglutaminase IgA <4.0 CU (<20.0)
== END 2024-03-23 08:40 | disposition home or self-care (01) ==
LOC: NCHCN 08:39
PROVIDERS: PCP Family Medicine; Visit Provider Family Medicine
DX: R10.9 Unspecified abdominal pain (principal)
CPT/HCPCS: 80053; 82784; 83516; 83690; 81003; 82150; 82728; 83540; 83550; 85025

== ENCOUNTER 2024-08-05 08:55 | Outpatient (REF) | payer OTHER, BC, SELFPAY ==
[2024-08-05 14:48] LABS: HCT 41.3 % (36.0-46.0); HGB 13.7 g/dL (11.2-15.7); MCHC 33.2 % (32.0-36.0); MCV 93 fL (80-95); MPV 10.7 fL (8.0-11.0); Platelet Count 300 10^3/uL (130-400); RBC 4.42 10^6/uL (3.93-5.22); RDW 12.5 % (11.7-14.6); RDW-SD 43.3 fL; WBC 6.29 10^3/uL (4.4-10.8)
[2024-08-05 15:29] LABS: ALT 35 U/L (14-59); AST 28 U/L (15-37); Albumin 4.1 g/dL (3.4-5.0); Alkaline Phosphatase 66 U/L (46-116); Anion Gap 10.3 mmol/L (3-11); BUN 13 mg/dL (7-18); Bilirubin, Total 0.4 mg/dL (0.2-1.0); CO2 29.7 mmol/L (21.0-32.0); CREATININE 0.6 mg/dL (0.55-1.02); Calcium 9.6 mg/dL (8.5-10.1); Calculated LDL 127 mg/dL (<100); Chloride 100 mmol/L (98-107); Cholesterol 222 mg/dL (<200); Glucose 93 mg/dL (74-106); HDL Cholesterol 83 mg/dL (>or=50); Potassium 4.3 mmol/L (3.5-5.1); Sodium 140 mmol/L (136-145); Total Protein 7.5 g/dL (6.4-8.2); Triglyceride 60 mg/dL (<150); Vitamin D 25 Total 32 ng/mL (30-100)
[2024-08-06 11:28] LABS: Measles IgG Antibody Positive (See Note)
[2024-08-06 11:30] LABS: Rubella IgG Ab (UVM) Positive (See Note)
[2024-08-06 15:22] LABS: Mumps Antibody IgG Equivocal (See Note)
== END 2024-08-05 08:56 | disposition home or self-care (01) ==
LOC: NCHCN 08:55
PROVIDERS: PCP Family Medicine; Visit Provider Family Medicine
DX: I10 Essential (primary) hypertension (principal); E78.5 Hyperlipidemia, unspecified; E55.9 Vitamin D deficiency, unspecified; Z00.00 Encounter for general adult medical examination without abnormal findings
CPT/HCPCS: 80053; 80061; 82306; 85027; 86735; 86762; 86765

== ENCOUNTER 2024-08-16 15:20 | Outpatient (REF) | payer OTHER, BC, SELFPAY ==
--- NOTE | 2024-08-16 08:30 | PAPFT_PTH ---
PATIENT: Roxy Richardson LOC: [facility][id number] AGE/SX: 63/F ROOM: RE08/16/[address]: Oralia Barnard : 1960 BED: DIS: 08/16/2024 SPEC #: [id number] RECD: 08/16/24 16:50 STATUS: MENDEZ RERmoeo #: [id number] CAROL: 08/16/24 08:[address]: Oralia Barnard DEPT: [facility], [facility] Cytology RECD BY: Keyla Hopper Tissues: 1 - CX/ENDOCX FOR PAP SMEARS Procedures: PAP THIN PREP/UVM Screening Comments: [id number] (HPV - QNS)
== END 2024-08-16 15:21 | disposition home or self-care (01) ==
LOC: NCHCN 15:20
PROVIDERS: PCP Family Medicine; Visit Provider Family Medicine
DX: Z12.4 Encounter for screening for malignant neoplasm of cervix (principal)
CPT/HCPCS: 88142

== ENCOUNTER 2024-09-20 02:47 | Outpatient (CLI) | payer OTHER, BC, SELFPAY ==
--- NOTE | 2024-09-20 | DI.MAMMO_ITS ---
Exam(s) MG MAMMO SCREENING 60 MIN DUR EXAM: MG MAMMO SCREENING 60 MIN DUR CLINICAL HISTORY: Z12.31 Screening, HX of breast CA TECHNIQUE: Mammograms were interpreted according to the usual protocol including computer analysis w ith CAD system, tomosynthesis and C-view imaging. Additional CC and MLO spot compression views were performed of central left breast tissue for bread or compression. COMPARISON: 2015 through 2022 FINDINGS: The breasts are composed of heterogeneously dense fibroglandular densities, Breast Density category C . No suspicious masses or suspicious microcalcifications are seen. Post lumpectomy scarring and benign calcifications are again noted. No skin thickening or abnormal axillary lymph nodes are seen. There has been no significant change from prior exams. IMPRESSION: BI-RADS Category 2 - Benign Findings Yearly screening mammography is recommended. Breast Density Category C, heterogeneously Dense. Breast density Category C or D implies that the patient has dense breast tissue. Dense breast tissue can make it harder to find cancer on a mammogram. Dense breast tissue is also associated with an incr eased risk of breast cancer. This information about the result of the mammogram report was provided to the patient to raise their awareness. Use this report when you speak with the patient about their risks for breast cancer, which includes their family history. At that time, you may recommend additional screening tests (Ultrasoun d or MRI) as these tests may add significant information. A negative radiographic report should not delay biopsy if a dominant or clinically suspicious mass is present. Up to ten percent of cancers are not identified on mammography. A negative report may reinforce clinical impression. Adenosis and dense breasts may obscure an underlying neoplasm. False positive reports average 6 to 10%.
== END 2024-09-20 03:07 ==
LOC: DI 02:47
PROVIDERS: PCP Family Medicine; Visit Provider Family Medicine
DX: Z12.31 Encounter for screening mammogram for malignant neoplasm of breast (principal); Z85.3 Personal history of malignant neoplasm of breast
CPT/HCPCS: 77063; 77067

== ENCOUNTER 2024-10-18 08:12 | Emergency (ER) | payer OTHER, BC, SELFPAY ==
[2024-10-18 08:15] VITALS: BP 161/77; PULSE 63; RESP 18; TEMP 36.8; O2SAT 99
--- NOTE | 2024-10-18 08:47 | W.ED.GENAD ---
Discharge Plan Disposition Patient Disposition: Home Discharge Details Clinical Impression: Cervical paraspinal muscle spasm Primary Care Provider: Oralia Barnard ED Provider: Benjy Grande Home Meds and New Rx's Prescriptions: New lidocaine [Lidoderm] 5 % adhesive patch,medicated 1 patch topical DAILY Qty: 15 0RF Rx Instructions: leave on most painful area for up to 12 hrs diazepam 5 mg tablet 5 mg PO QHS PRNQty: 5 0RF Continued lovastatin 20 mg tablet 40 mg PO QPM losartan-hydrochlorothiazide 100-25 mg tablet 1 tab PO DAILY Discharge Instructions Instructions: Using Heat for Pain, Muscle Spasm ED Additional Instructions: You were seen in the emergency department for your neck discomfort. You likely have a neck spasm for which you should take these medications as directed. Please note that you should not take diazepam while drinking alcohol for before driving. As we discussed, please return to the emergency department if you develop any discoloration of your hands or any weakness in your hands. Otherwise please follow-up as needed with your primary care provider. For your pain please take medications as follows: 1. Take acetaminophen (Tylenol), 1,000 mg (two 500 mg tabs) every 6 hours [2. Take ibuprofen (Advil), 400 mg every 6 hours.] Discharge Data Discharge Date/Time-TO BE ENTERED AT DEPARTURE: 10/18/24 09:36 HPI General Date/Time Provider Initiated Documentation: 10/18/24 08:47. HPI Narrative: MDM This is an overall very well-appearing normothermic and not tachycardic 63-year-old female paraspinal muscle spasm for which patient will receive diazepam, Lidoderm, oral analgesia using nonnarcotics and empiric trial of discharge with expectant outpatient management. No pain out of proportion to suggest necrotizing soft tissue infection. No midline cervical spinal tenderness to suggest increased risk for cervical spinal fracture. No weakness in upper extremities to suggest CVA. No rash to back to suggest zoster. No erythema to suggest cellulitis. Bilateral hands warm and no history of cervical rib so my suspicion is low for thoracic outlet symptom. I considered CVA however the patient has no motor nor sensory changes in her upper extremities so I do not feel she would be a tPA candidate so I did not order a CT scan of her head. In the absence of any objective weakness I am not concerning for nerve impingement so I did not feel that the patient required an MRI of her cervical spine. Patient and I discussed return indications including any weakness in her upper extremities, numbness or tingling in her hands, or any color changes in hands. I reviewed prescription drug monitoring website and prescribe patient a short course of diazepam. We discussed only taking this while at home and does not want drinking alcohol or driving. She will also take scheduled acetaminophen and ibuprofen. I advised PCP follow-up for discussion of possibility of physical therapy. Patient discharged with recommended outpatient management. HPI This is a female with a history of intermittent neck issues presenting with neck pain. The patient reports that the neck pain started on 10/14/2024 on the left side and subsequently shifted to the right. The initial onset occurred after performing arm weight exercises while her granddaughter was doing yoga. She felt fine on 10/14/2024 but began experiencing pain on 10/15/2024. The pain seemed to be under control by the end of 10/16/2024. On 10/17/2024, she felt mild tightness in her neck but was able to swing a golf club without significant discomfort. However, by the evening of 10/17/2024, after dinner with her family, the pain escalated to the point where she could barely move. The pain is described as tightness and soreness, and it has affected her left arm, causing soreness. She has not noticed any discoloration in her hands. She is right-handed and reports no recent trauma or falls. She is not currently on any anticoagulant therapy and has not undergone any recent neck surgeries. She is uncertain about the presence of an extra rib. Exam General: Well-appearing in no acute distress speaking in complete sentences. Head: Normocephalic, atraumatic. Eye: Extraocular eye movements intact. No conjunctival injection. No scleral icterus. Ear, nose, mouth, throat: Grossly normal inspection. Normal voice, handling secretions normally. Neck: Trachea midline. No midline cervical spinal tenderness. Left-sided mild paraspinal muscle spasm. No erythema to neck. No fluctuance. No rash. Cardiovascular: Well-perfused distal extremities. Respiratory: Nonlabored respiration. Gastrointestinal: Nondistended abdomen. Musculoskeletal: No edema. Moving all 4 extremities spontaneously. Full range of motion bilateral upper extremities. Bilateral 2+ radial pulses. Hands warm well-perfused. Bilateral hands with intact sensation & motor function across the radial, median, and ulnar nerve distributions. Skin: Normal for age and race, grossly normal temperature and turgor. No acute rash. Neurologic: Alert and appropriate, no apparent acute deficits. GCS 15. Psychiatric: Mood and manner are appropriate. Grooming and personal hygiene are appropriate. Related Data Home Medications ?Medication ?Instructions ?Recorded ?Confirmed lovastatin 20 mg tablet 40 mg PO QPM 09/14/21 10/18/24 losartan 100 1 tab PO DAILY 08/12/23 10/18/24 mg-hydrochlorothiazide 25 mg tablet diazepam 5 mg tablet 5 mg PO QHS PRN #5 tabs 10/18/24 lidocaine 5 % topical patch 1 patch topical DAILY #15 ea 10/18/24 (Lidoderm) Previous Rx's ?Medication ?Instructions ?Recorded diazepam 5 mg tablet 5 mg PO QHS PRN #5 tabs 10/18/24 lidocaine 5 % topical patch 1 patch topical DAILY #15 ea 10/18/24 (Lidoderm) Allergies Allergy/AdvReac Type Severity Reaction Status Date / Time lisinopril Allergy Severe cough Verified 10/18/24 08:22 General Stated Complaint: Nk/Back Pain LORENE: 3 Course Vital Signs Vital signs: Vital Signs Temperature 36.8 C 10/18/24 08:15 Pulse 63 10/18/24 08:15 Respiratory Rate 18 10/18/24 08:15 Blood Pressure 161/77 H 10/18/24 08:15 Pulse Oximetry 99 10/18/24 08:15 Temperature 36.8 C 10/18/24 08:15 Temperature Source Oral 10/18/24 08:15 Pulse 63 10/18/24 08:15 Respiratory Rate 18 10/18/24 08:15 Blood Pressure 161/77 H 10/18/24 08:15 Blood Pressure Position Sitting 10/18/24 08:15 Pulse Oximetry 99 10/18/24 08:15 Oxygen Delivery Method Room Air 10/18/24 08:15 Oxygen Flow Rate 0 10/18/24 08:15 Pain Level 8 10/18/24 08:15 PFSH All Active Problems (Updated 10/18/24 @ 09:09 by Benjy Grande MD) Cervical paraspinal muscle spasm (Acute) Impacted cerumen, right ear (Acute) Skin lesions (Acute) Conductive hearing loss, external ear (Acute) Impacted cerumen, bilateral (Acute) Tubular adenoma of colon (Acute) Screening for colon cancer (Acute) Medical History Prediabetes Cholesteatoma Obesity Vitamin D deficiency Primary malignant neoplasm of female breast Neck pain Migraine headache Hematuria, microscopic Breast cancer 9th year remission Hyperlipidemia Hypertension Arthralgia Surgical History H/O tubal ligation 12/1988 S/P ORIF (open reduction internal fixation) fracture bimaleolar fx 05/27/2011 History of appendectomy emergency in 1976 History of colonoscopy with polypectomy (~07/08/22) Hx of elbow surgery 2001 History of ankle surgery metal plate in ankle History of colonoscopy (~03/2011) Family History Mother Diabetes Hyperlipidemia Hypertension Father Brain tumor Brother Germ cell cancer Sister Hx of cholecystectomy Social History Smoking/Tobacco Use Status: Never Smoking risk assessment performed?: Yes Alcohol Intake: current Alcohol Intake frequency: a few times a month Alcohol type: wine Drug use: Never Substance use type: does not use Details: alcohol: t-4, couple glasses of wine Do you feel safe at home: Yes Do you feel safe in your relationship?: Yes PAWSS Have you Been Recently Intoxicated or Drunk Within the Last 30 days?: No Have you Ever Experienced Previous Episodes of Alcohol Withdrawal?: No Have you ever Experienced Withdrawal Seizures?: No Have you ever Experienced Delirium Tremens(DT)s?: No Have you ever undergone Alcohol Rehabilitation Treatment (i.e, inpt ot outpatient treatment programs)?: No Have you ever Experienced Blackouts?: No Have you ever Combined Alcohol with other Downers within the last 90 days?: No Have you ever Combined Alcohol with any other Substance of Abuse during the last 90 days?: No Result: 0
[2024-10-18] MEDS: Acetaminophen 500 MG TAB 1000 MG PO (09:30)
[2024-10-18] MEDS: Lidocaine 5% Patch 1 PATCH TP (09:31)
[2024-10-18] MEDS: Ibuprofen 600 MG TAB PO (09:31)
== END 2024-10-18 09:36 | disposition home or self-care (01) ==
PROVIDERS: Emergency Provider Emergency Medicine; PCP Family Medicine
DX: M54.2 Cervicalgia (principal); M62.838 Other muscle spasm; E78.5 Hyperlipidemia, unspecified; I10 Essential (primary) hypertension
CPT/HCPCS: 99283